=== PATIENT | male | born 1980 | race Caucasian/White ===

== ENCOUNTER 2017-03-28 18:16 | Emergency (ER) | payer BC ==
[2017-03-28 19:18] VITALS: BP 129/73; PULSE 64; RESP 18; TEMP 98.5
--- NOTE | 2017-03-28 20:02 | ED ---
General Adult HPI - General Chief complaint: Extremity Injury, Upper Stated complaint: Elbow pain Time Seen by Provider: 03/28/17 19:38 Source: patient, RN notes reviewed, old records reviewed Mode of arrival: ambulatory Limitations: physical limitation - History of Present Illness Initial comments: This patient is a 36 year old male with increasing left elbow pain for one week. He reports he hit the elbow one month ago and pain has persistend. He reports the end of elbow is tender and fells like the skin has started to swell. No erythema or wrrmth from the elbow. Patient reports full range of motion and normal sensation. Deneis fever, chills, chest pain, Shortness of breath. - Related Data Home Medications Medication Instructions Recorded Confirmed Ibuprofen [Advil] 800 mg PO Q8HR PRN 03/28/17 03/28/17 Previous Rx's Medication Instructions Recorded Acetaminophen-Codeine 300-30mg 1 tab PO Q4H PRN #15 tablet 03/28/17 [Tylenol #3] Naproxen [Naprosyn] 500 mg PO Q12HR #20 tab 03/28/17 Allergies Allergy/AdvReac Type Severity Reaction Status Date / Time No Known Allergies Allergy Verified 03/28/17 19:54 Review of Systems ROS Statement: Those systems with pertinent positive or pertinent negative responses have been documented in the HPI. ROS Other: All systems not noted in ROS Statement are negative. Past Medical History Past Medical History: No Reported History History of Any Multi-Drug Resistant Organisms: None Reported Past Surgical History: No Surgical Hx Reported Past Psychological History: No Psychological Hx Reported Smoking Status: Current every day smoker Past Alcohol Use History: None Reported Past Drug Use History: None Reported General Exam - General Exam Comments Initial Comments: Well appearing 36 year old male, no distress. Limitations: physical limitation General appearance: alert, in no apparent distress Head exam: Present: atraumatic, normocephalic, normal inspection Eye exam: Present: normal appearance, PERRL, EOMI. Absent: scleral icterus, conjunctival injection, periorbital swelling ENT exam: Present: normal exam, mucous membranes moist Neck exam: Present: normal inspection. Absent: tenderness, meningismus, lymphadenopathy Respiratory exam: Present: normal lung sounds bilaterally. Absent: respiratory distress, wheezes, rales, rhonchi, stridor Cardiovascular Exam: Present: regular rate, normal rhythm, normal heart sounds. Absent: systolic murmur, diastolic murmur, rubs, gallop, clicks GI/Abdominal exam: Present: soft, normal bowel sounds. Absent: distended, tenderness, guarding, rebound, rigid Extremities exam: Present: normal inspection, full ROM, normal capillary refill. Absent: tenderness, pedal edema, joint swelling, calf tenderness Left Upper Arm exam: Present: normal inspection, full ROM Elbow exam: Present: normal inspection, tenderness (over olecranon process.), effusion (at olecranon) Forearm Wrist exam: Present: normal inspection, full ROM Hand Wrist exam: Present: normal inspection, full ROM Back exam: Present: normal inspection Neurological exam: Present: alert, oriented X3, CN II-XII intact Psychiatric exam: Present: normal affect, normal mood Course Vital Signs 03/28/17 19:15 Temperature 98.5 F Pulse Rate 64 Respiratory 18 Rate Blood Pressure 129/73 O2 Sat by Pulse 98 Oximetry Medical Decision Making - Medical Decision Making This patient is a 36 year old male with increasing left elbow pain for one week. He reports he hit the elbow one month ago and pain has persistend. Patient has effusion over yunior elbow. He is left handed. No significant bursitis or drainagle swelling noted at this time. Patient xray has moderate olecraonon spur. Discussed this is cause of patient pain. Discussed follow up with PCP and orthopedic. Written for pain medication and antiinflammatories medication. - Radiology Data Radiology results: report reviewed PAtient has moderate spurring of olecranon process. No fracture or dislocation. Disposition Clinical Impression: Right elbow pain, Elbow tendinitis Disposition: HOME SELF-CARE Condition: Good Instructions: Elbow Bursitis (ED) Additional Instructions: Patient advised to apply ice over the area of the elbow, take anti-inflammatory medicine. Wear the Abraham wrap. Follow-up with lab specialist. Return to the emergency department if any alarming signs or symptoms occur. Prescriptions: Acetaminophen-Codeine 300-30mg [Tylenol #3] 1 tab PO Q4H PRN #15 tablet PRN Reason: Pain Naproxen [Naprosyn] 500 mg PO Q12HR #20 tab Referrals: None,Stated [Primary Care Provider] - 1-2 days Catalina Roberts MD [STAFF PHYSICIAN] - 1-2 days Justus Calix MD [Medical Doctor] - 1-2 days Time of Disposition: 20:40
--- NOTE | 2017-03-28 20:13 | XR ---
EXAMINATION TYPE: XR elbow complete LT DATE OF EXAM: 03/28/2017 COMPARISON: NONE HISTORY: Elbow pain and swelling TECHNIQUE: 3 views FINDINGS: I see no fracture nor dislocation. There is a large spur on the olecranon process of the ul na. There is no sign of joint effusion. There is a small 10 mm exostosis on the lateral distal shaft of the humerus. IMPRESSION: Moderate spurring on the olecranon process. No fracture seen.
== END 2017-03-28 20:51 | disposition home or self-care (01) ==
LOC: EC 18:16
DX: M77.9 Enthesopathy, unspecified (principal); F17.200 Nicotine dependence, unspecified, uncomplicated
CPT/HCPCS: 99284